=== PATIENT | female | born 1985 | race Caucasian/White ===

== ENCOUNTER → 2017-08-28 | Outpatient (CLI) | payer OTHER ==
[~2017-08-28] MED LIST: ACYC400 PO; BUPR150ER PO; IBUP800 PO; LAMO100 PO; RANI150 PO; Verotin-Gr Cap1 EACH PO
== END ==
LOC: LAB SHORT 12:37 → PLD 12:37
DX: D06.9 Carcinoma in situ of cervix, unspecified (principal)
CPT/HCPCS: 88307

== ENCOUNTER → 2018-10-10 | Outpatient (CLI) | payer OTHER ==
[~2018-10-10] MED LIST changes: +IRON150C PO
== END | disposition home or self-care (01) ==
LOC: LAB 10:43 → LAB SHORT 10:43
DX: Z34.80 Encounter for supervision of other normal pregnancy, unspecified trimester (principal)
CPT/HCPCS: 87081; 87653

== ENCOUNTER 2018-10-18 18:26 | Inpatient (IN) | payer OTHER ==
[~2018-10-18] VITALS: Ht 162.6 cm; Wt 0.2 kg
[~2018-10-18 18:26] MED LIST changes: -IRON150C PO
[2018-10-18] MEDS ORDERED: IRON150C PO (20:24)
[2018-10-18 21:07] LABS: BASOPHILS ABSOLUTE AUTO 0.04 K/mm3 (0.00-0.23); BASOPHILS PERCENT AUTO 0 % (0-2); EOSINOPHILS ABSOLUTE AUTO 0.01 K/mm3 (0.00-0.68); EOSINOPHILS PERCENT AUTO 0 % (0-6); Hematocrit 33.2 % (33.0-51.0); Hemoglobin 11.1 g/dL (11.5-16.0); IMMATURE GRAN ABSOLUTE AUTO 0.03 K/mm3 (0.00-0.10); IMMATURE GRAN PERCENT AUTO 0 % (0-1); LYMPHOCYTES ABSOLUTE AUTO 2.17 K/mm3 (0.84-5.20); LYMPHOCYTES PERCENT AUTO 18 % (21-46); MONOCYTES ABSOLUTE AUTO 0.31 K/mm3 (0.16-1.47); MONOCYTES PERCENT AUTO 3 % (4-13); Mean Corpuscular HGB 31.1 pg (26.0-34.0); Mean Corpuscular HGB Conc 33.4 g/dL (31.5-36.5); Mean Corpuscular Volume 93 fL (80-100); Mean Platelet Volume 9.5 fL (9.1-12.4); NEUTROPHILS PERCENT AUTO 78 % (41-73); Platelet Count 312 K/mm3 (150-400); RDW Coefficient Variation 12.6 % (11.7-14.2); RDW Standard Deviation 43.1 fL (35.1-46.3); Red Blood Cell Count 3.57 M/mm3 (3.80-5.20); White Blood Cell Count 11.86 K/mm3 (4.00-11.30)
[2018-10-19 06:00] LABS: Hematocrit 33.4 % (33.0-51.0); Hemoglobin 11.2 g/dL (11.5-16.0); Mean Corpuscular HGB 31.5 pg (26.0-34.0); Mean Corpuscular HGB Conc 33.5 g/dL (31.5-36.5); Mean Corpuscular Volume 94 fL (80-100); Mean Platelet Volume 9.8 fL (9.1-12.4); Platelet Count 309 K/mm3 (150-400); RDW Coefficient Variation 12.4 % (11.7-14.2); RDW Standard Deviation 43.1 fL (35.1-46.3); Red Blood Cell Count 3.55 M/mm3 (3.80-5.20); White Blood Cell Count 17.87 K/mm3 (4.00-11.30)
--- NOTE | 2018-10-19 21:17 | NUR ---
WENT TO MAKE MY ROUNDS ON PATIENT AND MOM WAS IN THE BATH TAKING A BUBBLE BATH. RN INFORMED MOM THAT SHE COULD NOT TAKE A BATH FOR 6 WEEKS PP AND EXPLAINED WHY. MOM WAS COMPLIANT AND GOT OUT OF THE BATH IMMEDIATELY; SHE SAID SHE DID NOT KNOW SHE WAS NOT TO TAKE A BATH BUT STATES UNDERSTANDING AT THIS TIME.
[2018-10-20] MEDS ORDERED: IBUP800 PO (12:52)
--- NOTE | 2018-10-20 16:05 | NUR ---
DISCHARGE ALL DISCHARGE INSTRUCTIONS DISCUSSED AND PATIENT VERBALIZES UNDERSTANDING OF FOLLOW UP APPOINTMENTS. NO QUESTIONS OR CONCERNS. WILL BE PUT TO BOARDER STATUS AFTER NEXT DOSE OF IBUPROFEN. STABLE. CARING FOR SELF AND BABY INDEPENDANTLY.
--- NOTE | 2018-10-20 17:33 | NUR ---
CONSULT. MOM IS EXPERIENCED, FEELS LIKE BF IS GOING WELL. DISPLAYS GOOD LATCH AND BABY BEGINS SWALLOWING SOON AFTER LATCHING, MILK STARTING TO TRANSITION IN. DENIES QUESTIONS.
== END 2018-10-20 17:15 | disposition home or self-care (01) | DRG 807 ==
LOC: OBS 18:26 → BC 18:26 → OBS 20:07 → BC 10-20 17:15
PROVIDERS: ADMIT Obstetrics & Gynecology
PROC: 10E0XZZ Delivery of Products of Conception, External Approach (ICD-10-PCS; principal; 2018-10-18)
DX: O99.824 Streptococcus B carrier state complicating childbirth (principal); Z37.0 Single live birth; Z3A.38 38 weeks gestation of pregnancy
CPT/HCPCS: 36415; 59025; 85025; 85027; J0290; J1885; J2210; J2405; J2590; J7120

== ENCOUNTER → 2019-06-09 | Outpatient (CLI) | payer OTHER, SELFPAY ==
[~2019-06-09] MED LIST changes: +IRON150C PO
[2019-06-11 16:06] LABS: HPV 16 Negative (Negative); HPV 18 Negative (Negative); HPV OTHER HR TYPES Negative (Negative)
== END | disposition home or self-care (01) ==
LOC: LAB 18:48 → LAB SHORT 18:48
PROVIDERS: Advanced Practice Midwife
DX: Z01.419 Encounter for gynecological examination (general) (routine) without abnormal findings (principal)
CPT/HCPCS: 87624; G0123

== ENCOUNTER 2021-08-29 15:53 | Emergency (ER) | payer SELFPAY ==
[~2021-08-29] VITALS: Ht 162.6 cm; Wt 90.7 kg
[2021-08-29 18:03] LABS: BASOPHILS ABSOLUTE AUTO 0.05 K/mm3 (0.00-0.23); BASOPHILS PERCENT AUTO 0 % (0-2); EOSINOPHILS ABSOLUTE AUTO 0.12 K/mm3 (0.00-0.68); EOSINOPHILS PERCENT AUTO 1 % (0-6); Hemoglobin 12.2 g/dL (11.5-16.0); IMMATURE GRAN ABSOLUTE AUTO 0.02 K/mm3 (0.00-0.10); IMMATURE GRAN PERCENT AUTO 0 % (0-1); LYMPHOCYTES ABSOLUTE AUTO 1.99 K/mm3 (0.84-5.20); LYMPHOCYTES PERCENT AUTO 18 % (21-46); MONOCYTES ABSOLUTE AUTO 0.42 K/mm3 (0.16-1.47); MONOCYTES PERCENT AUTO 4 % (4-13); Mean Corpuscular HGB 30.9 pg (26.0-34.0); Mean Corpuscular HGB Conc 33.9 g/dL (31.5-36.5); Mean Corpuscular Volume 91 fL (80-100); Mean Platelet Volume 9.4 fL (9.1-12.4); NEUTROPHILS PERCENT AUTO 77 % (41-73); Platelet Count 306 K/mm3 (150-400); RDW Coefficient Variation 12.1 % (11.7-14.2); RDW Standard Deviation 40.5 fL (35.1-46.3); Red Blood Cell Count 3.95 M/mm3 (3.80-5.20)
[2021-08-29 18:59] LABS: Source, Urine Clean Catch
[2021-08-29 19:04] LABS: Appearance, Urine Hazy (Clear); Bilirubin, Urine Neg (Neg); Blood, Urine 5+ (Neg); Color, Urine Red (P-Yellow); Glucose Qualitative, Urine Neg (Neg); Ketones, Urine Neg (Neg); Leukocyte Esterase, Urine 1+ (Neg); Nitrite, Urine Neg (Neg); Protein, Urine 3+ (Neg); Urobilinogen, Urine NORM (Normal)
[2021-08-29 19:18] LABS: Amorphous Light (0-Heavy); Bacteria Few /hpf; Red Blood Cells, Urine 50-100 /hpf (0-2); Squamous Epithelial Cells Few /hpf (Few)
== END 2021-08-29 20:42 | disposition home or self-care (01) ==
LOC: ER 15:53
PROVIDERS: Physician Assistant
DX: O20.0 Threatened abortion (principal); Z3A.01 Less than 8 weeks gestation of pregnancy
CPT/HCPCS: 76801; 76817; 81001; 84702; 85025; 86900; 86901; 87086; 99284-25

== ENCOUNTER → 2022-02-23 | Outpatient (CLI) | payer OTHER ==
[2022-02-27 08:10] LABS: HPV 16 Negative (Negative); HPV 18 Negative (Negative); HPV OTHER HR TYPES Negative (Negative)
== END | disposition home or self-care (01) ==
LOC: LAB 13:35 → LAB SHORT 13:35
PROVIDERS: Obstetrics & Gynecology
DX: Z01.419 Encounter for gynecological examination (general) (routine) without abnormal findings (principal)
CPT/HCPCS: 87624; G0123

== ENCOUNTER → 2022-08-07 | Outpatient (CLI) | payer OTHER | END | disposition home or self-care (01) | LOC: LAB 16:20 → LAB SHORT 16:20 | DX: O09.893 Supervision of other high risk pregnancies, third trimester (principal) | CPT/HCPCS: 87081; 87150 ==

== ENCOUNTER 2022-08-18 01:31 | Inpatient (IN) | payer OTHER ==
[~2022-08-18] VITALS: Ht 162.6 cm; Wt 98.4 kg
[2022-08-18 06:06] LABS: BASOPHILS ABSOLUTE AUTO 0.05 K/mm3 (0.00-0.23); BASOPHILS PERCENT AUTO 0 % (0-2); EOSINOPHILS ABSOLUTE AUTO 0.03 K/mm3 (0.00-0.68); EOSINOPHILS PERCENT AUTO 0 % (0-6); Hematocrit 32.9 % (33.0-51.0); Hemoglobin 11.6 g/dL (11.5-16.0); IMMATURE GRAN ABSOLUTE AUTO 0.04 K/mm3 (0.00-0.10); IMMATURE GRAN PERCENT AUTO 0 % (0-1); LYMPHOCYTES ABSOLUTE AUTO 2.08 K/mm3 (0.84-5.20); LYMPHOCYTES PERCENT AUTO 18 % (21-46); MONOCYTES ABSOLUTE AUTO 0.33 K/mm3 (0.16-1.47); MONOCYTES PERCENT AUTO 3 % (4-13); Mean Corpuscular HGB 31.3 pg (26.0-34.0); Mean Corpuscular HGB Conc 35.3 g/dL (31.5-36.5); Mean Corpuscular Volume 89 fL (80-100); Mean Platelet Volume 9.9 fL (9.1-12.4); NEUTROPHILS PERCENT AUTO 78 % (41-73); Platelet Count 249 K/mm3 (150-400); RDW Coefficient Variation 12.8 % (11.7-14.2); RDW Standard Deviation 41.9 fL (35.1-46.3); Red Blood Cell Count 3.71 M/mm3 (3.80-5.20); White Blood Cell Count 11.43 K/mm3 (4.00-11.30)
--- NOTE | 2022-08-18 10:50 | NUR ---
Discharged to home with no cervical change
== END 2022-08-18 09:30 | disposition home or self-care (01) | DRG 832 ==
LOC: OBS 01:31 → BC 01:33 → OBS 04:05 → BC 04:10
PROVIDERS: ADMIT Family Medicine
DX: O99.213 Obesity complicating pregnancy, third trimester (principal); O98.313 Other infections with a predominantly sexual mode of transmission complicating pregnancy, third trimester; E66.9 Obesity, unspecified; Z3A.37 37 weeks gestation of pregnancy; O99.820 Streptococcus B carrier state complicating pregnancy; A60.00 Herpesviral infection of urogenital system, unspecified; Z87.891 Personal history of nicotine dependence; Z79.899 Other long term (current) drug therapy
CPT/HCPCS: 36415; 59025; 81003; 85025; 86850; 86900; 86901; J0290; J2590; J7120

== ENCOUNTER 2022-08-31 07:40 | Inpatient (IN) | payer OTHER ==
[~2022-08-31] VITALS: Ht 162.6 cm; Wt 98.0 kg
[2022-08-31 08:24] LABS: BASOPHILS ABSOLUTE AUTO 0.03 K/mm3 (0.00-0.23); BASOPHILS PERCENT AUTO 0 % (0-2); EOSINOPHILS ABSOLUTE AUTO 0.03 K/mm3 (0.00-0.68); EOSINOPHILS PERCENT AUTO 0 % (0-6); Hematocrit 33.1 % (33.0-51.0); Hemoglobin 11.6 g/dL (11.5-16.0); IMMATURE GRAN ABSOLUTE AUTO 0.03 K/mm3 (0.00-0.10); IMMATURE GRAN PERCENT AUTO 0 % (0-1); LYMPHOCYTES ABSOLUTE AUTO 1.72 K/mm3 (0.84-5.20); LYMPHOCYTES PERCENT AUTO 20 % (21-46); MONOCYTES ABSOLUTE AUTO 0.27 K/mm3 (0.16-1.47); MONOCYTES PERCENT AUTO 3 % (4-13); Mean Corpuscular HGB 30.9 pg (26.0-34.0); Mean Corpuscular Volume 88 fL (80-100); NEUTROPHILS ABSOLUTE AUTO 6.56 K/mm3 (1.96-9.15); NEUTROPHILS PERCENT AUTO 76 % (41-73); Platelet Count 239 K/mm3 (150-400); RDW Coefficient Variation 12.9 % (11.7-14.2); RDW Standard Deviation 40.9 fL (35.1-46.3); Red Blood Cell Count 3.76 M/mm3 (3.80-5.20); White Blood Cell Count 8.64 K/mm3 (4.00-11.30)
== END 2022-09-01 15:25 | disposition home or self-care (01) | DRG 807 ==
LOC: OBS 07:40 → BC 07:40 → OBS 07:51 → BC 07:53
PROVIDERS: ADMIT Obstetrics & Gynecology
PROC: 10E0XZZ Delivery of Products of Conception, External Approach (ICD-10-PCS; principal; 2022-08-31)
DX: O42.02 Full-term premature rupture of membranes, onset of labor within 24 hours of rupture (principal); Z37.0 Single live birth; O99.824 Streptococcus B carrier state complicating childbirth; Z3A.39 39 weeks gestation of pregnancy; O71.82 Other specified trauma to perineum and vulva; O76 Abnormality in fetal heart rate and rhythm complicating labor and delivery; O99.344 Other mental disorders complicating childbirth; F31.9 Bipolar disorder, unspecified; O99.214 Obesity complicating childbirth; Z87.891 Personal history of nicotine dependence; Z79.899 Other long term (current) drug therapy; Z98.890 Other specified postprocedural states
CPT/HCPCS: 36415; 85025; 86850; 86900; 86901; A9270; J0290; J1885; J2405; J2590; J7120